=== PATIENT | male | born 1955 | race Caucasian/White ===

== ENCOUNTER → 2017-11-22 | Outpatient (CLI) | payer BC | LOC: GMAJ 10:52 | PROVIDERS: ATTEND Family Medicine | DX: E78.00 Pure hypercholesterolemia, unspecified (principal); Z12.5 Encounter for screening for malignant neoplasm of prostate ==

== ENCOUNTER → 2020-04-09 | Outpatient (CLI) | payer MEDICARE, OTHER | LOC: GMAJ 10:14 | PROVIDERS: ATTEND Family Medicine | DX: Z12.5 Encounter for screening for malignant neoplasm of prostate (principal) ==

== ENCOUNTER → 2020-05-31 | Outpatient (CLI) | payer MEDICARE, OTHER ==
--- NOTE | 2020-06-01 07:49 | RAD ---
EXAM: Chest,2 Views INDICATION: 65 years Male, CHEST PAIN COMPARISON: None available FINDINGS: Two views of the chest were performed. Heart size is within normal limits. Dense patchy and confluent infiltrates in the peripheral lungs bilaterally, greatest in the mid and lower lung zones. There is relative sparing of the lung apices. No pleural effusion. No pneumothorax. The osseous structures are intact. Unremarkable appearance of the visualized upper abdomen. IMPRESSION: Dense bilateral peripheral pulmonary infiltrates. Findings are compatible with pneumonia, and could represent COVID 19 pneumonia given the pattern. Electronically signed by: Yasmeen Shetty MD 06/01/2020 7:48 AM [facility]
== END ==
LOC: RAD 15:43
PROVIDERS: ATTEND Nurse Practitioner Family
DX: R07.89 Other chest pain (principal); R91.8 Other nonspecific abnormal finding of lung field